=== PATIENT | female | born 1990 ===

== ENCOUNTER 2025-01-24 13:59 | Inpatient (IN) | payer OTHER ==
[2025-01-24] MEDS ORDERED: Sodium Chloride 0.9% 10 ML Syringe FLUSH PRN (14:53)
[2025-01-24] MEDS ORDERED: TRANEXAMIC ACID IV PRN (14:53)
[2025-01-24] MEDS ORDERED: Sodium Chloride 0.9% 2.5 ML Syringe FLUSH PRN (14:53)
[2025-01-24] MEDS ORDERED: Misoprostol 200 MCG Tab PO PRN (14:53)
[2025-01-24] MEDS ORDERED: Sodium Chloride 0.9% 20 ML SDV IV PRN (14:53)
[2025-01-24] MEDS ORDERED: Water For Irrigation,Sterile 1,000 ML Container IRR PRN (14:53)
[2025-01-24] MEDS ORDERED: Methylergonovine 0.2 MG/1 ML Amp IM PRN (14:53)
[2025-01-24] MEDS ORDERED: Terbutaline 1 MG/ML SDV SUBCUT PRN (14:53)
[2025-01-24] MEDS ORDERED: Carboprost Tromethamine 250 MCG/1 mL Vial IM PRN (14:53)
[2025-01-24] MEDS ORDERED: Misoprostol 25 MCG (1/4 of 100 MCG) Tab VAG PRN ×2 (14:53)
[2025-01-24] MEDS ORDERED: Lactated Ringers 1,000 ML IV SCH (15:00)
[2025-01-24 15:49] LABS: HEMATOCRIT 42.9 % (37.0-47.0); HEMOGLOBIN 14.4 g/dL (12.0-16.0); MEAN CORPUSCULAR HEMOGLOBIN 31.8 pg (28.0-32.0); MEAN CORPUSCULAR HGB CONC 33.6 g/dL (32.0-36.0); MEAN CORPUSCULAR VOLUME 94.7 fL (83.0-99.0); MEAN PLATELET VOLUME 9.4 fL (9.4-12.3); PLATELET COUNT,PLT 213 K/uL (150-400); RED BLOOD CELL COUNT 4.53 M/uL (4.10-5.30)
[2025-01-24] MEDS: Oxytocin/0.9 % Sodium Chloride 30 UNIT/500 ML BAG IV SCH ×2 (16:15→22:58)
[2025-01-24] MEDS: Butorphanol 2 MG/ML SDV IVPUSH PRN (22:21)
[2025-01-24] MEDS ORDERED: Docusate Sodium 100 MG Cap PO PRN (23:15)
[2025-01-24] MEDS ORDERED: oxyCODONE 5 MG Tab PO PRN (23:15)
[2025-01-24] MEDS ORDERED: Lanolin 100% Cream 7 GM Tube TOP PRN (23:15)
[2025-01-24] MEDS: Lidocaine 1% 50 ML MDV INJECT PRN (23:16)
[2025-01-25 00:22] LABS: PH,UMBILICAL ARTERIAL 7.312 (7.18-7.38); PH,UMBILICAL VENOUS 7.271 (7.25-7.45)
[2025-01-25] MEDS: Ibuprofen 800 MG Tab PO PRN (01:20)
[2025-01-25] MEDS: Acetaminophen 500 MG Tab PO PRN (01:20)
[2025-01-25] MEDS: Benzocaine/Menthol 20%-0.5% Spray 78 GM Cannister TOP PRN (01:21)
[2025-01-25] MEDS: Witch Hazel Medicated Pads 40/Jar TOP PRN (01:21)
[2025-01-25 05:54] LABS: HEMOGLOBIN 12.5 g/dL (12.0-16.0)
== END 2025-01-26 14:22 | disposition home or self-care (01) | DRG 807 ==
LOC: MW.OB 13:59 → OBSVTOIN 22:56 → MW.OB 01-25 00:46
PROVIDERS: ADMIT Obstetrics & Gynecology; ATTEND Obstetrics & Gynecology
PROC: 10E0XZZ Delivery of Products of Conception, External Approach (ICD-10-PCS; principal; 2025-01-24)
PROC: 0HQ9XZZ Repair Perineum Skin, External Approach (ICD-10-PCS; 2025-01-24)
PROC: 10907ZC Drainage of Amniotic Fluid, Therapeutic from Products of Conception, Via Natural or Artificial Opening (ICD-10-PCS; 2025-01-24)
PROC: 4A1HXCZ Monitoring of Products of Conception, Cardiac Rate, External Approach (ICD-10-PCS; 2025-01-24)
DX: O70.0 First degree perineal laceration during delivery (principal); Z37.0 Single live birth; Z3A.39 39 weeks gestation of pregnancy
CPT/HCPCS: 36415; 59025; 59409; 82803; 85014; 85018; 85027; 86592; 86850; 86900; 86901; A9270-GY; J0595; J2003; J2590